=== PATIENT | male | born 1985 | race Caucasian/White ===

== ENCOUNTER 2016-05-15 15:56 | Emergency (ER) | payer SELFPAY ==
[~2016-05-15] VITALS: Ht 167.6 cm; Wt 68.0 kg
[~2016-05-15 15:56] MED LIST: MOBI15TA PO; TRAM50 PO
[2016-05-15 15:58] VITALS: BP 140/82; PULSE 97; RESP 20; TEMP 98.1; O2SAT 97
[2016-05-15] MEDS ORDERED: MORPHINE SULFATE 4 MG/ML INJ IV PUSH ONE ×2 (16:15→17:00)
[2016-05-15] MEDS ORDERED: MIDAZOLAM HCL 2 MG/2 ML VIAL IV PUSH ONE ×2 (16:15→17:00)
--- NOTE | 2016-05-15 16:39 | RADRPT ---
EXAM DATE/TIME: 05/15/2016 16:14 [facility] COMPARISON: SHOULDER RIGHT LTD (2VWS), August 05, 2015, 15:28. INDICATIONS : Right shoulder pain and deformity. MEDICAL HISTORY : None. SURGICAL HISTORY : None. ENCOUNTER: Initial ACUITY: 1 day PAIN SCORE: 10/10 LOCATION: Right shoulder FINDINGS: Glenohumeral joint is acutely dislocated. Acromioclavicular joint is normal. I don't see a displaced fracture. CONCLUSION: Anteriorly dislocated glenohumeral joint. David Calhoun MD on May 15, 2016 at 16:37 Board Certified Radiologist. This report was verified electronically.
[2016-05-15 16:45] VITALS: O2SAT 100
[2016-05-15 16:58] VITALS: BP 131/82; PULSE 81; RESP 17; O2SAT 100
--- NOTE | 2016-05-15 17:38 | PD ---
HPI Chief Complaint: Injury Time Seen by Provider: 16:09 Travel History International Travel<30 days: No Contact w/Intl Traveler<30days: No Traveled to known affect area: No History of Present Illness HPI 30-year-old male came to the emergency room with history of right shoulder pain and possible dislocation. He was doing his laundry when this happened. He has had multiple dislocations in the past. He is in pain and looks uncomfortable. He was slightly tachycardic upon arrival probably from the pain and the anxiety. He is otherwise a healthy person. [facility] Past Medical History Narrative Medical List of his past medical, surgical, social and family history is reviewed from the nursing note. Medical History: Denies Significant Hx Diminished Hearing: No Musculoskeletal: Yes (R AND L SHOULDER DISLOCATION ) Past Surgical History Surgical History: No Previous Surgery Social History Alcohol Use: Yes Tobacco Use: No Substance Use: No Allergies-Medications (Allergen,Severity, Reaction): Coded Allergies: No Known Allergies (Verified , 05/15/16) Comments No known drug allergies. Reported Meds & Prescriptions Reported Meds & Active Scripts Active No Active Prescriptions or Reported Medications Narrative Medication List of his home medications reviewed from the nursing note. Review of Systems Except as stated in HPI: all other systems reviewed are Neg Physical Exam Narrative GENERAL: Awake, alert, anxious, moderate to significant distress SKIN: Warm and dry. HEAD: Atraumatic. Normocephalic. EYES: Pupils equal and round. No scleral icterus. No injection or drainage. ENT: No nasal bleeding or discharge. Mucous membranes pink and moist. NECK: Trachea midline. No JVD. CARDIOVASCULAR: Regular rate and rhythm. No murmur appreciated. RESPIRATORY: No accessory muscle use. Clear to auscultation. Breath sounds equal bilaterally. GASTROINTESTINAL: Abdomen soft, non-tender, nondistended. Hepatic and splenic margins not palpable. MUSCULOSKELETAL: Right shoulder deformity. Possible anterior dislocation. No clubbing. No cyanosis. No edema. Neurovascular intact. NEUROLOGICAL: Awake and alert. No obvious cranial nerve deficits. Motor grossly within normal limits. Normal speech. PSYCHIATRIC: Appropriate mood and affect; insight and judgment normal. Data Data Last Documented VS Vital Signs Date Time Temp Pulse Resp B/P Pulse Ox O2 Delivery O2 Flow Rate FiO2 05/15/16 17:51 88 17 134/78 99 Room Air 05/15/16 16:45 4.00 05/15/16 15:58 98.1 Orders Shoulder, Limited(2vws) (05/15/16 ) Midazolam Inj (Versed Inj) (05/15/16 16:15) Morphine Inj (Morphine Inj) (05/15/16 16:15) Midazolam Inj (Versed Inj) (05/15/16 17:00) Morphine Inj (Morphine Inj) (05/15/16 17:00) [employer] Request For Service (05/15/16 16:53) Sling And Swathe (05/15/16 ) Shoulder, Limited(2vws) (05/15/16 ) [facility] Medical Decision Making Medical Screen Exam Complete: Yes Emergency Medical Condition: Yes Medical Record Reviewed: Yes Differential Diagnosis Shoulder dislocation, fracture Narrative Course 5:30 PM patient tolerated the reduction well. Awaiting for the post reduction x -ray. Please refer to the procedure note regarding the procedural sedation and the reduction. Procedures Procedure Narrative After the risks and benefits were discussed the following procedure was performed: MODERATE SEDATION: The patient was placed on a bus monitor and pulse oximetry. An ambu bag and suction was immediately available at bedside. The patient was monitored by the nurse. Oxygen saturation , heart rate and blood pressure were monitored. Procedural sedation was acheived using 4 mg of IV Versed and 8 mg of IV morphine . The patient was observed until awake and alert. Procedural Sedation time in attendance was 20 minutes. Shoulder dislocation reduction: Reduction was done under procedural sedation for the right shoulder dislocation. Once patient was well relaxed the reduction was achieved by the Davos method. Patient tolerated the procedure well. Shoulder immobilizer was applied after the procedure. Distal pulses intact after reduction. Good cap refill. Awaiting for the post reduction x- ray. EKG Prior to Arrival: No Diagnosis Primary Impression: Shoulder dislocation Qualified Code: S43.004A - Shoulder dislocation, right, initial encounter Referrals: David Castañeda MD 2 days Departure Forms: Tests/Procedures, Work Release Enter return to work date: May 20, 2016 Additional Instructions: Please follow-up with the orthopedic surgeon was name and number been given to you. Keep the shoulder immobilizer on all times. Please return to the ER if the condition worsens or any other new concerns. Apply cool compress on the shoulder if it gets sore. Take Motrin/ibuprofen/Advil for pain control. Med/Other Pt SpecificInfo: No Change to Meds Scripts No Active Prescriptions or Reported Meds Disposition: 01 DISCHARGE HOME Condition: Stable Haroon Sen MD May 15, 2016 17:38 Haroon Sen MD May 15, 2016 17:38
[2016-05-15 17:51] VITALS: BP 134/78; PULSE 88; RESP 17; O2SAT 99
--- NOTE | 2016-05-15 18:00 | RADRPT ---
EXAM DATE/TIME: 05/15/2016 17:50 [facility] COMPARISON: SHOULDER RIGHT LTD (2VWS), May 15, 2016, 16:14. INDICATIONS : Post Reduction, Right Shoulder. MEDICAL HISTORY : None. SURGICAL HISTORY : None. ENCOUNTER: Initial ACUITY: 1 day PAIN SCORE: 1/10 LOCATION: Right Shoulder. FINDINGS: Glenohumeral joint has been reduced. Alignment appears normal. No displaced fracture seen. Soft tissu es are within normal limits. CONCLUSION: Previously seen anterior dislocation has been reduced into normal appearing alignment. David Calhoun MD on May 15, 2016 at 17:57 Board Certified Radiologist. This report was verified electronically.
== END 2016-05-15 18:20 | disposition home or self-care (01) ==
LOC: NEPA 15:56
DX: S43.004A Unspecified dislocation of right shoulder joint, initial encounter (principal); R00.0 Tachycardia, unspecified; X50.9XXA Other and unspecified overexertion or strenuous movements or postures, initial encounter; Y93.E2 Activity, laundry; Y92.009 Unspecified place in unspecified non-institutional (private) residence as the place of occurrence of the external cause
CPT/HCPCS: 23650; 29240; 73030; 96374; 96375; 99152; 99283; J2250; J2270